=== PATIENT | male | born 1940 | race Caucasian/White ===

== ENCOUNTER → 2023-07-18 | Outpatient (CLI) | payer MEDICARE, OTHER ==
[~2023-07-18] MED LIST: ASPIRIN ADULT L81 M2 PO; CALCIUM CARBON200 MG PO; COLACE100 MG PO; HYDROCODONE-AC1 EAC1 PO; LAXATIVE5 MG PO; LISINOPRIL20 MG PO; NORVASC10 MG PO; PROMACTA50 MG PO; TOPROL XL25 MG PO; VITAMIN D350 MCG PO
== END | disposition home or self-care (01) ==
LOC: ORTHO 03:35
PROVIDERS: ATTEND Orthopaedic Surgery
DX: S72.032D Displaced midcervical fracture of left femur, subsequent encounter for closed fracture with routine healing (principal); X58.XXXD Exposure to other specified factors, subsequent encounter

== ENCOUNTER → 2023-08-29 | Outpatient (CLI) | payer MEDICARE, OTHER | END | disposition home or self-care (01) | LOC: ORTHO 02:27 | PROVIDERS: ATTEND Orthopaedic Surgery | DX: Z47.1 Aftercare following joint replacement surgery (principal); Z96.642 Presence of left artificial hip joint ==

== ENCOUNTER 2023-11-24 01:47 | Emergency (ER) | payer MEDICARE, OTHER ==
[~2023-11-24] VITALS: Ht 182.8 cm; Wt 88.0 kg
[2023-11-24] MEDS ORDERED: Tdap Vaccine 0.5 ML SYR (Adult Vaccine) IM ONE (03:20)
[2023-11-24] MEDS ORDERED: ceFAZolin sodium 2 GM in SYRINGE INFUSION 20 ML IV ONE (03:20)
[2023-11-24] MEDS ORDERED: SODIUM CHLORIDE 0.9% 50 ML BAG IV ONE (09:16)
[2023-11-24] MEDS ORDERED: CEFAZOLIN IV ONE (09:16)
[2023-11-24] MEDS ORDERED: [UNRECOGNIZED DRUG - OTHER] IV ONE (09:16)
== END 2023-11-24 04:43 | disposition short-term general hospital (02) ==
LOC: ED 01:47
DX: S42.201A Unspecified fracture of upper end of right humerus, initial encounter for closed fracture (principal); S72.001A Fracture of unspecified part of neck of right femur, initial encounter for closed fracture; S42.211A Unspecified displaced fracture of surgical neck of right humerus, initial encounter for closed fracture; F10.129 Alcohol abuse with intoxication, unspecified; I10 Essential (primary) hypertension; M19.90 Unspecified osteoarthritis, unspecified site; F10.10 Alcohol abuse, uncomplicated; Z90.49 Acquired absence of other specified parts of digestive tract; Z96.651 Presence of right artificial knee joint; Z90.89 Acquired absence of other organs; W19.XXXA Unspecified fall, initial encounter; Y93.89 Activity, other specified; Y92.89 Other specified places as the place of occurrence of the external cause; Y99.8 Other external cause status; Y90.0 Blood alcohol level of less than 20 mg/100 ml